=== PATIENT | female | born 1965 | race Caucasian/White ===

== ENCOUNTER 2017-02-16 08:16 | Outpatient (RCR) | payer OTHER ==
[~2017-02-16 08:16] MED LIST: ACET-789 PO; ALPR.25T PO; AMT10T; CCLB10TRX; CHLS4PK PO; DULO30CA PO; DULO60CA6 PO; HYDR1TAB PO; METO25TA2 PO; MTF500T PO; PROGESTERONE; SMTR50T; STOOL SOFTENER; TIZA2TAB3 PO; TOPI25TA2 PO; TPR25T PO; TRAZ150T42 PO; WELLBUTRIN; [UNRECOGNIZED DRUG - OTHER]
== END 2017-03-02 09:02 | disposition home or self-care (01) ==
PROVIDERS: ATTEND Orthopaedic Surgery Sports Medicine
DX: M17.0 Bilateral primary osteoarthritis of knee (principal)